=== PATIENT | male | born 1990 | race African-American/Black ===

== ENCOUNTER 2017-04-07 06:29 | Emergency (ER) | payer SELFPAY ==
[~2017-04-07] VITALS: Ht 175.3 cm; Wt 77.0 kg
[~2017-04-07 06:29] MED LIST: IBUP-103 PO
[2017-04-07 06:32] VITALS: TEMP 36.3; Ht 175.3 cm; Wt 77.0 kg
[2017-04-07] MEDS ORDERED: MoRPHine SULFATE 4 MG/ML 1 ML CARP\\VIAL ONE (06:53)
--- NOTE | 2017-04-07 06:57 | EMERGENCY ROOM VISIT NOTE ---
History Report prepared by Lamin: Adina Alarcon Under the Supervision of: Dr. Ehsan Hankins M.D. First contact with patient: 06:43 Chief Complaint: ABDOMINAL PAIN Stated Complaint: ABD PAIN History of Present Illness The patient is a 26 year old male who presents to the Emergency Room with complaints of persistent abdominal pain starting around 7 hours ago. The patient has been unable to sleep because of the pain. The pain is located all over his abdomen. He has had this pain before. He reports he gets this pain 1-2 times a year. He has seen a GI doctor and was told he has ulcers and acid reflux. He tried taking a painkiller to no significant relief. He is nauseous. He has vomited several times and had diarrhea. He took a shot of Vaishali today. The pain started after the Vaishali. Source of History: patient Onset: 7 hours ago Position: abdomen Quality: other (pain) Timing: other (persistent) Associated Symptoms: + nausea, + vomiting, + diarrhea Review of Systems All systems have been listed, reviewed, and are negative other than those previously mentioned. Please see Additional Medical History Sheet. Past Medical & Surgical Medical Problems: (1) Chronic abdominal pain (2) Dislocation of shoulder joint Family History Patient reports no known family medical history. Social History Smoking Status: Never Smoker Alcohol Use: occasionally Marital Status: single Housing Status: lives alone Occupation Status: student Current/Historical Medications Scheduled PRN Dicyclomine Hcl (Bentyl), 20 MG PO Q6H PRN for abdominal pain Allergies Coded Allergies: No Known Allergies (Unverified , 04/07/17) Physical Exam Vital Signs Date Time Temp Pulse Resp B/P (MAP) Pulse Ox O2 Delivery O2 Flow Rate FiO2 04/07/17 12:32 67 20 143/75 100 04/07/17 11:30 68 18 128/56 98 Room Air 2.0 04/07/17 10:54 52 16 123/63 98 Room Air 04/07/17 09:15 97 Room Air 04/07/17 09:00 52 14 112/64 99 Nasal Cannula 2.0 04/07/17 08:30 49 12 102/59 100 Nasal Cannula 3.0 04/07/17 08:11 50 12 95/61 97 Nasal Cannula 4.0 04/07/17 07:51 51 13 104/66 96 Nasal Cannula 5.0 04/07/17 07:28 52 04/07/17 07:20 52 12 116/70 94 Nasal Cannula 5.0 04/07/17 07:10 54 Room Air 04/07/17 07:02 96 Room Air 04/07/17 07:02 67 16 126/79 100 Room Air 04/07/17 06:32 36.3 66 18 125/74 95 Room Air Physical Exam GENERAL: Patient awake, alert, appears to be in severe distress. Patient is shaking and moaning. Patient follows commands. Patient does not appear toxic. Patient is well-nourished. SKIN: No erythema, pallor, cyanosis or rash HEENT: Normal head, pupils equal, reactive to light and accommodation. Oral cavity and posterior pharynx mucous membranes are dry. Neck: Without adenopathy , no neck vein distention. LUNGS: Clear to auscultation. No wheezes, no rales, no rhonchi. HEART: No murmurs. No gallops. No rubs ABDOMEN: Diffuse tenderness, but no point tenderness. No masses, no rebound, no hepatomegaly or splenomegaly. EXTREMITIES: No signs of trauma or infection. NEUROLOGIC: Cranial nerves II-XII within normal limits. No gross motor sensory function deficits. Medical Decision & Procedures Laboratory Results 04/07/17 06:45 04/07/17 06:45 Test 04/07/17 06:45 04/07/17 09:20 Red Blood Count 5.36 M/uL (4.7-6.1) Mean Corpuscular Volume 82.8 fL (80-100) Mean Corpuscular Hemoglobin 30.0 pg (25-34) Mean Corpuscular Hemoglobin Concent 36.3 g/dl (32-36) RDW Standard Deviation 36.8 fL (36.4-46.3) RDW Coefficient of Variation 12.3 % (11.5-14.5) Mean Platelet Volume 10.0 fL (7.4-10.4) Anion Gap 12.0 mmol/L (3-11) Est Creatinine Clear Calc Drug Dose 79.3 ml/min Estimated GFR () 79.2 Estimated GFR (Non- 68.4 BUN/Creatinine Ratio 9.6 (10-20) Calcium Level 9.7 mg/dl (8.5-10.1) Total Bilirubin 0.8 mg/dl (0.2-1) Aspartate Amino Transf (AST/SGOT) 67 U/L (15-37) Alanine Aminotransferase (ALT/SGPT) 50 U/L (12-78) Alkaline Phosphatase 87 U/L (45-117) Total Protein 8.7 gm/dl (6.4-8.2) Albumin 5.0 gm/dl (3.4-5.0) Globulin 3.7 gm/dl (2.5-4.0) Albumin/Globulin Ratio 1.4 (0.9-2) Lipase 248 U/L (73-393) Urine Color YELLOW Urine Appearance CLEAR (CLEAR) Urine pH 6.5 (4.5-7.5) Urine Specific [place] 1.022 (1.000-1.030) Urine Protein NEG (NEG) Urine Glucose (UA) NEG (NEG) Urine Ketones 1+ (NEG) Urine Occult Blood NEG (NEG) Urine Nitrite NEG (NEG) Urine Bilirubin NEG (NEG) Urine Urobilinogen NEG (NEG) Urine Leukocyte Esterase NEG (NEG) Laboratory results as stated above per my review. Medications Administered Medications (Trade) Dose Ordered Sig/Chase Route Start Time Stop Time Status Last Admin Dose Admin Ondansetron HCl (Zofran Inj) 4 mg Q1HWA PRN IV 04/07/17 07:00 04/07/17 12:55 DC 04/07/17 06:58 4 MG Sodium Chloride 1,000 ml @ 1,000 mls/hr Q1H ONCE IV 04/07/17 07:00 04/07/17 07:59 DC 04/07/17 06:58 1,000 MLS/HR Morphine Sulfate (MoRPHine SULFATE INJ) 8 mg STK-MED ONCE .ROUTE 04/07/17 06:53 04/07/17 06:54 DC 04/07/17 06:59 8 MG ECG Indication: bradycardia Rate (beats per minute): 51 Rhythm: sinus bradycardia Findings: ST elevation (consistent with repolarization), no ectopy, other ( normal axis) ED Course 0644: Past medical records reviewed. The patient was evaluated in room B11B. A complete history and physical examination was performed. 0653: Morphine Sulfate 8 mg IV. 0700: NSS 1000 ml @ 1000 mls/hr IV, Zofran Inj 4 mg IV. 0734: I reevaluated the patient. The nurse reports that the patient's pulse ox dropped after the morphine. He is at 98% now. 1135: The patient was reexamined. He appears to be in no distress abdomen is soft and nontender. I discussed today's findings with him. He verbalized agreement of the treatment plan. He was discharged home. Medical Decision Nurses notes reviewed. Medical history sheet reviewed. Differential diagnosis includes but is not limited to: peptic/gastric ulcer disease, colitis, severe anxiety, gastroenteritis, pancreatitis, cholelithiasis, cholecystitis, diverticulitis, appendicitis. The patient's pain seemed to start after he got a shot of alcohol last night. The patient does have a prior history of stomach spasms. The patient was given pain medication here which made him sleep. He was observed here for almost 5 hours. He was able to drink fluids prior to his discharge. Multiple labs and urinalysis were obtained and evaluated. Please see above. The patient was felt safe to return home. He will be given something for his abdominal spasm. The patient was encouraged to avoid all alcohol and drink extra nonalcohol containing fluids today. Medication Reconcilliation Current Medication List: was personally reviewed by me Blood Pressure Screening Patient's blood pressure: Normal blood pressure Blood pressure disposition: Did not require urgent referral Impression Primary Impression: Spastic intestine Scribe Attestation The scribe's documentation has been prepared under my direction and personally reviewed by me in its entirety. I confirm that the note above accurately reflects all work, treatment, procedures, and medical decision making performed by me. Departure Information Dispostion Home / Self-Care Prescriptions Dicyclomine Hcl (BENTYL) 20 Mg Tab 20 MG PO Q6H Y for abdominal pain, #10 TAB Prov: Ehsan Hankins M.D. 04/07/17 Referrals No Doctor, Assigned (PCP) Patient Instructions My [facility] Additional Instructions 1 Bentyl every 6 hours as needed for abdominal pain. You should drink at least 1 gallon of liquid over the next 24 hours. Follow-up with your family physician within the next 10 days if you have any recurrence of your abdominal pain. Return here if you're unable to hold down liquids. Avoid alcohol.
[2017-04-07] MEDS ORDERED: SODIUM CHLORIDE 0.9% 1000ML 1,000 ML IV ONE (07:00)
[2017-04-07] MEDS ORDERED: MoRPHine SULFATE 10 MG/ML CARP/VIAL IV PRN (07:00)
[2017-04-07] MEDS ORDERED: ONDANSETRON INJ 2 MG/ML 2 ML VIAL IV PRN (07:00)
[2017-04-07 07:06] LABS: HEMATOCRIT 44.4 % (42-52); MEAN CELL VOLUME 82.8 fL (80-100); MEAN CORPUSCULAR HGB CONC 36.3 g/dl (32-36); PLATELET COUNT 227 K/uL (130-400); RED BLOOD COUNT 5.36 M/uL (4.7-6.1); WHITE BLOOD COUNT 6.08 K/uL (4.8-10.8)
[2017-04-07 07:15] LABS: BUN/CREATININE RATIO 9.6 (10-20); CALCIUM 9.7 mg/dl (8.5-10.1); CREATININE 1.4 mg/dl (0.60-1.40); POTASSIUM 4.1 mmol/L (3.5-5.1)
[2017-04-07 07:17] LABS: ALB/GLOB RATIO 1.4 (0.9-2)
[2017-04-07 09:15] VITALS: O2SAT 97
[2017-04-07 09:43] LABS: URINE APPEARANCE CLEAR (CLEAR); URINE BILIRUBIN NEG (NEG); URINE COLOR YELLOW; URINE NITRITE NEG (NEG); URINE PH 6.5 (4.5-7.5); URINE SPECIFIC GRAVITY 1.022 (1.000-1.030); UROBILINOGEN NEG (NEG); ZZUR CULT IF INDIC CLEAN CATCH NO
[2017-04-07 09:50] LABS: MANUAL MICROSCOPIC REQUIRED? NO; REVIEW REQ? NO
[2017-04-07] MEDS ORDERED: DICY20TA35 PO (11:41)
[2017-04-07 12:32] VITALS: BP 143/75; PULSE 67; O2SAT 100
== END 2017-04-07 12:15 | disposition home or self-care (01) ==
LOC: C.EDB 06:30
DX: K58.9 Irritable bowel syndrome, unspecified (principal)